=== PATIENT | female | born 1945 | race Caucasian/White ===

== ENCOUNTER → 2018-01-03 | Outpatient (CLI) | payer MEDICARE ==
--- NOTE | 2018-01-04 08:13 | RAD ---
Bone densitometry scan, 01/03/2018: HISTORY: Postmenopausal screening The lumbar spine and right hip were examined utilizing a DEXA technique. The bone mineral density in the lumbar spine as measured from the L1-L4 levels is 1.37 g/sq cm. This yields a T score of 1.6 which is in the normal range. The lumbar spine T score on the 08/04/2015 exam was 1.3. The total T score at the right hip is -0.2 which is also in the normal range. The right hip T score on the previous study was -0.3. IMPRESSION: Normal bone mineral density measurements. Electronically signed by: Andres Barcenas MD (01/04/2018 8:09 AM) [facility]
--- NOTE | 2018-01-04 10:31 | RAD ---
DATE: 01/03/2018 EXAM: MAMMO SARA SCREENING BILATERAL HISTORY: Routine screening COMPARISON: 08/04/2015 This study was interpreted with the benefit of Computerized Aided Detection (CAD). The breast parenchyma is heterogeneously dense, which could reduce sensitivity of mammography. Breast parenchyma level C. FINDINGS: 2-D and 3-D tomosynthesis imaging was performed in CC and MLO projections. No new or enlarging breast densities are seen. There are multiple microcalcifications in both breasts. The distribution suggests a benign etiology such as sclerosing adenosis. No suspicious microcalcifications have developed. IMPRESSION: Stable mammograms without evidence of malignancy. BI-RADS CATEGORY: 2 BENIGN FINDING(S) RECOMMENDED FOLLOW-UP: 12M 12 MONTH FOLLOW-UP PQRS compliance statement: Patient information was entered into a reminder system with a target due date for the next mammogram. Mammography is a sensitive method for finding small breast cancers, but it does not detect them all and is not a substitute for careful clinical examination. A negative mammogram does not negate a clinically suspicious finding and should not result in delay in biopsying a clinically suspicious abnormality. "Our facility is accredited by the [employer] Mammography [employer]."
== END | disposition home or self-care (01) ==
LOC: DXRAD 11:06
PROVIDERS: ATTEND Family Medicine
DX: Z12.31 Encounter for screening mammogram for malignant neoplasm of breast (principal); Z13.820 Encounter for screening for osteoporosis; Z78.0 Asymptomatic menopausal state
CPT/HCPCS: 77063; 77067; 77080

== ENCOUNTER → 2020-10-08 | Outpatient (CLI) | payer MEDICARE ==
[~2020-10-08] MED LIST: ALPR0.5T6 PO; FAMO20TA5 PO; METO50TA29 PO; SERT100T PO; SIMV20TA18 PO
== END ==
LOC: LAB 10:25
PROVIDERS: ATTEND Nurse Anesthetist, Certified Registered
DX: Z01.812 Encounter for preprocedural laboratory examination (principal); Z86.010 Personal history of colon polyps; Z20.822 Contact with and (suspected) exposure to COVID-19
CPT/HCPCS: U0003

== ENCOUNTER → 2020-10-12 | Day surgery (SDC) | payer MEDICARE ==
[~2020-10-12] MED LIST changes: +IPRATRPIUM/ALBUTEROL 0.5/2.5MG 3 ML NEBU. NEB PRN; +IV RINGERS SOLUTION,LACTATED 1,000 ML IV SCH; +LIDOCAINE 2% PF 5 ML VIAL. ONE; +MIDAZOLAM HCL PF 2 MG/2 ML VIAL. IV ONE; +ONDANSETRON PF 4 MG/2 ML VIAL. IV PRN; +PROPOFOL 10,000 MCG/ML (20ML) VIAL IV ONE
[2020-10-12 12:07] VITALS: BP 131/60
--- NOTE | 2020-10-18 14:07 | PATHOLOGY ---
[facility] Accession Number: [id number] . 01 Material submitted: . PART A: gastrointestinal site - GASTRIC BIOPSY PART B: esophagus - DISTAL ESOPHAGUS BIOPSY. Modifiers: distal PART C: cecum - CECAL POLYP . 01 Clinical history: . PRE-OPERATIVE DIAGNOSIS - GERD/HISTORY POLYPS OPERATIVE PROCEDURE - EGD/COLONOSCOPY . 02 Diagnosis: A. Gastric biopsies: - Chronic gastritis, mild. . B. 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 . C. Colon biopsies, cecal polyp: - Sessile serrated polyp/adenoma with focal mucosal-associated lymphoid tissue. (JPM:tonja 10/18/2020) [facility] 10/18/2020 1337 Local . 02 Comment: Sections of the gastric antral biopsy show congestion and mild chronic inflammation. A properly controlled immunoperoxidase stain for Helicobacter is negative for Helicobacter organisms. . 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 There is no dysplasia or evidence of malignancy. . Sections of the cecal polyp biopsy reveal a sessile serrated polyp/adenoma with focal mucosal-associated lymphoid tissue. There is no high-grade dysplasia or evidence of malignancy. (JPM:tonja 10/18/2020) . Special stain performed: Immunoperoxidase for Helicobacter on A1. . 02 Electronically signed: . Khanh Raman MD, Pathologist NPI- [id number] . 01 Gross description: . A. The specimen is received in formalin, labeled "Caro Villedalings, gastric biopsy". Received are two segments of pale cristina tissue measuring 0.2 and 0.4 cm in maximum dimensions. The specimen is submitted entirely in cassette A1. . B. The specimen is received in formalin, labeled "Caro Viridiana, distal esophagus". Received are three segments of pale cristina tissue ranging in size from 0.2-0.3 cm in maximum dimensions. The specimen is submitted entirely in cassette B1. . C. The specimen is received in formalin, labeled "Caro Viridiana, cecal polyp ". Received are five segments of pale cristina tissue ranging in size from 0.2-0.3 cm in maximum dimensions. The specimen is submitted entirely in cassette C1. (CAA; 10/15/2020) QAC/QAC 10/15/2020 1126 Local . 02 Pathologist provided ICD-10: K29.50, K20.90, D12.0 . 02 CPT . 772459, 494150, 926174, [id number] Specimen Comment: A courtesy copy of this report has been sent to [phone], [phone] Specimen Comment: [id number] Specimen Comment: Report sent to / Performed at: 01 [facility] [address], [place] [id number] MD Dominick Henley MD Phone: [phone] Performed at: 02 [facility] [address] [place], [place] [id number] MD Khanh Raman MD Phone: [phone]
== END | disposition home or self-care (01) ==
LOC: SURG 09:56
PROVIDERS: ATTEND Emergency Medicine
DX: Z12.11 Encounter for screening for malignant neoplasm of colon (principal); K21.00 Gastro-esophageal reflux disease with esophagitis, without bleeding; K29.50 Unspecified chronic gastritis without bleeding; D12.0 Benign neoplasm of cecum; K44.9 Diaphragmatic hernia without obstruction or gangrene; M85.88 Other specified disorders of bone density and structure, other site; Z86.010 Personal history of colon polyps; Z88.6 Allergy status to analgesic agent; Z88.8 Allergy status to other drugs, medicaments and biological substances; Z79.899 Other long term (current) drug therapy
CPT/HCPCS: 43239; 45380; J2001; J2704; J7120

== ENCOUNTER → 2021-05-26 | Outpatient (CLI) | payer MEDICARE ==
[2020-10-12 12:07] VITALS: BP 131/60
[~2021-05-26] MED LIST changes: -IPRATRPIUM/ALBUTEROL 0.5/2.5MG 3 ML NEBU. NEB PRN; -IV RINGERS SOLUTION,LACTATED 1,000 ML IV SCH; -LIDOCAINE 2% PF 5 ML VIAL. ONE; -MIDAZOLAM HCL PF 2 MG/2 ML VIAL. IV ONE; -ONDANSETRON PF 4 MG/2 ML VIAL. IV PRN; -PROPOFOL 10,000 MCG/ML (20ML) VIAL IV ONE
--- NOTE | 2021-05-26 15:30 | RAD ---
INDICATION: Screening for osteopenia/osteoporosis. Reason: SCREENING / Spl. Instructions: / History : . Postmenopausal evaluation. COMPARISON: 01/03/2018 TECHNIQUE: Bone densitometry was performed through the lumbar spine and proximal femur. IMPRESSION: Lumbar Spine: BMD: 1.36 T-Score: 1.5 Range: Comparable to prior. Normal range. Proximal Femur: BMD: 0.8 T-Score: -1.2 Range: Osteopenic. Decreased by 11 percent from prior World Health Organization Criteria for Bone Density: T-Score: > -1.0: Normal Range < -1.0 to -2.5: Osteopenic Range < -2.5: Osteoporotic Range Electronically signed by: Denver Damian MD (05/26/2021 3:28 PM) [id number]
== END ==
LOC: DXRAD 13:40
PROVIDERS: ATTEND Family Medicine
DX: M85.88 Other specified disorders of bone density and structure, other site (principal); Z78.0 Asymptomatic menopausal state
CPT/HCPCS: 77080